=== PATIENT | male | born 1995 | race African-American/Black ===

== ENCOUNTER 2022-07-13 21:21 | Emergency (ER) | payer SELFPAY ==
[~2022-07-13 21:21] MED LIST: Iopamidol 370 76% 100 ML VIAL ONE
[2022-07-13] MEDS ORDERED: Lidocaine 1%/Epinephrine 1:100K 10 ML VIAL ONE (21:44)
[2022-07-13] MEDS ORDERED: Sodium Chloride 0.9% 100 ML ONE ×2 (22:06→22:38)
[2022-07-13] MEDS ORDERED: Piperacillin/Tazobactam 4.5 GM VIAL ONE (22:06)
[2022-07-13] MEDS ORDERED: Boostrix 0.5 ML (Tdap) VIAL (>/=7 yrs of age) ONE (22:06)
[2022-07-13] MEDS ORDERED: Ketorolac Tromethamine 30 MG/ML VIAL ONE (22:15)
[2022-07-13 22:23] LABS: Bilirubin Negative (Negative); Blood, Urine Moderate (Negative); Clarity Clear (Clear); Glucose, Urine (Dipstick) 500 mg/dL (Negative); Ketone, Urine Negative (Negative); Leukocyte Negative (Negative); Nitrite Negative (Negative); Protein, Urine (Dipstick) > or equal to 300 mg/dL (Neg-Trace); Urobilinogen 0.2 mg/dL (Less than 2); pH, Urine 5.5 (5.0-9.0)
[2022-07-13 22:25] LABS: Specific Gravity, Urine 1.027 (1.002-1.036)
[2022-07-13 22:31] LABS: ALT (SGPT) 12 U/L (8-55); AST (SGOT) 16 U/L (5-34); Albumin 3.5 g/dL (3.5-5.0); Alkaline Phosphatase 107 U/L (40-110); Anion Gap 16 mmol/L (10-20); BUN (Urea Nitrogen) 15 mg/dL (8.9-20.6); Bilirubin, Total 0.4 mg/dL (0.2-1.2); Calc. Creatinine Clearance 0 mL/min (70-130); Calcium 9.2 mg/dL (7.8-10.44); Carbon Dioxide 20 mmol/L (22-29); Chloride 100 mmol/L (98-107); Estimated GFR 83; Globulin 5.4 g/dL (2.4-3.5); Glucose 270 mg/dL (70-105); Potassium 3.3 mmol/L (3.5-5.1); Protein, Total 8.9 g/dL (6.0-8.3); Sodium 133 mmol/L (136-145)
[2022-07-13 22:33] LABS: Bacteria/HPF None Seen HPF (None Seen); Mucous/LPF 3+ LPF (<2+); Squamous Epithelial 0-3 HPF (0-3); Transitional Epithelial None Seen HPF (None Seen)
[2022-07-13 22:34] LABS: Amphetamine Not Detected (NotDetected); Barbiturates Screen Not Detected (NotDetected); Benzodiazepine Screen Not Detected (NotDetected); Cocaine Metabolite Screen Not Detected (NotDetected); Medtox Control Line Valid? VALID (VALID); Methadone Not Detected (NotDetected); Methamphetamine Not Detected (NotDetected); Opiate Screen Not Detected (NotDetected); Oxycodone Screen Not Detected (NotDetected); Phencyclidine (PCP) Not Detected (NotDetected); THC/Cannabinoid Screen Detected (NotDetected); Tricyclic Screen Not Detected (NotDetected)
[2022-07-13] MEDS ORDERED: Vancomycin HCl 500 MG VIAL ONE (22:38)
[2022-07-13] MEDS ORDERED: Sodium Chloride 0.9% 250 ML 250 ML ONE (22:38)
[2022-07-13 22:40] LABS: Band 10 % (5-11); Hemoglobin 12.1 g/dL (14.0-18.0); Lymphocytes 28 % (21-51); MDiff Complete? YES; Mean Corpuscular HGB CONC 31.3 g/dL (32.0-36.0); Mean Corpuscular Hemoglobin 25.8 pg (27.0-31.0); Mean Corpuscular Volume 82.5 fL (78.0-98.0); Mean Platelet Volume 8.8 fL (7.4-10.4); Monocytes 5 % (0-10); Neutrophil 57 % (42-75); Platelet Count 225 thou/uL (130-400); RBC Distribution Width 13.1 % (11.5-14.5); RBC Morphology Normal; Red Blood Cell (RBC) Count 4.69 mill/uL (4.70-6.10); White Blood Cell (WBC) Count 11.5 thou/uL (4.8-10.8)
[2022-07-13] MEDS ORDERED: Sodium Chloride 0.9% 1,000 ML ONE (22:49)
[2022-07-13] MEDS ORDERED: Insulin Regular 300 UNITS/3 ML VIAL ONE (23:01)
[2022-07-14 01:30] LABS: Lactic Acid 1.4 mmol/L (0.5-2.2)
== END 2022-07-14 02:27 | disposition home or self-care (01) ==
LOC: MADERS 21:21
DX: L02.215 Cutaneous abscess of perineum (principal); E10.65 Type 1 diabetes mellitus with hyperglycemia; L03.317 Cellulitis of buttock; L03.315 Cellulitis of perineum; F17.210 Nicotine dependence, cigarettes, uncomplicated; Z23 Encounter for immunization
CPT/HCPCS: 36416; 46050; 72193; 80053; 80306; 81003; 81015; 83605; 84443; 85025; 87040; 87070; 87077; 87149; 87186; 87205; 90471; 90715; 96365; 96366; 96367; 96375; J1815; J1885; J2543; J3370; J3490; J7050; Q9967

== ENCOUNTER 2025-02-03 13:01 | Emergency (ER) | payer SELFPAY ==
[2025-02-03] MEDS ORDERED: Fluorescein Opthalmic Strip ONE (13:36)
[2025-02-03] MEDS ORDERED: Tetracaine 0.5% PF 4 ML BOT ONE (13:36)
[2025-02-03] MEDS ORDERED: Boostrix 0.5 ML (Tdap) VIAL (>/=7 yrs of age) ONE (14:59)
== END 2025-02-03 15:02 | disposition home or self-care (01) ==
LOC: MADERS 13:01
DX: S05.02XA Injury of conjunctiva and corneal abrasion without foreign body, left eye, initial encounter (principal); H20.042 Secondary noninfectious iridocyclitis, left eye; F17.210 Nicotine dependence, cigarettes, uncomplicated; E11.9 Type 2 diabetes mellitus without complications; Z79.4 Long term (current) use of insulin; W50.0XXA Accidental hit or strike by another person, initial encounter
CPT/HCPCS: 90471; 90715

== ENCOUNTER 2025-10-12 22:12 | Emergency (ER) | payer SELFPAY | END 2025-10-12 23:00 | disposition home or self-care (01) | LOC: MADERS 22:12 | DX: B02.9 Zoster without complications (principal); K08.89 Other specified disorders of teeth and supporting structures; K02.9 Dental caries, unspecified; E11.9 Type 2 diabetes mellitus without complications; F17.210 Nicotine dependence, cigarettes, uncomplicated; Z79.4 Long term (current) use of insulin | CPT/HCPCS: 99282 ==